=== PATIENT | male | born 1975 | race Caucasian/White ===

== ENCOUNTER 2017-01-26 13:56 | Emergency (ER) | payer OTHER ==
--- NOTE | 2017-01-26 16:20 | ED ---
Laceration/Wound HPI - HPI Summary HPI Summary: Patient presents to ED with left thumb laceration from printing saw. 1cm in length. Deep, most likely involving tendons, bleeding under control. Tetanus unknown. He s unable to extend at the DIP joint. Denies numbness and tingling , but endorses pain at the base of the thumb. He is otherwise healthy and takes no medications. Pulses intact +2. Denies color or temperature changes. Denies other injuries. - History of Current Complaint Stated Complaint: LT HAND / THUMB LAC Time Seen by Provider: 01/26/17 14:34 Hx Obtained From: Patient Mechanism of Injury: Sharp/Blunt Trauma Onset/Duration: Sudden Onset Aggravating: Movement Alleviating: Nothing Timing: Constant Onset Severity: Mild Current Severity: Mild Pain Intensity: 6 Pain Scale Used: 0-10 Numeric Associated Signs & Symptoms: Pain Related Hx: Dominant Hand (Right) - Allergy/Home Medications Allergies/Adverse Reactions: Allergies Allergy/AdvReac Type Severity Reaction Status Date / Time Amoxicillin Allergy Unknown Verified 01/26/17 14:01 Reaction Details Penicillins Allergy Unknown Verified 01/26/17 14:01 Reaction Details PMH/Surg Hx/FS Hx/Imm Hx Previously Healthy: Yes - Immunization History Hx Pertussis Vaccination: No Immunizations Up to Date: Unable to Obtain/Confirm Infectious Disease History: No Infectious Disease History: Denies: Traveled Outside the [place] in Last 30 Days - Social History Occupation: Employed Full-time Lives: With Family Alcohol Use: None Hx Substance Use: No Substance Use Type: Reports: None Hx Tobacco Use: No Smoking Status (MU): Never Smoked Tobacco Review of Systems Constitutional: Negative Eyes: Negative Cardiovascular: Negative Respiratory: Negative Positive: Arthralgia - left thumb laceration to tendon, Myalgia Skin: Negative Neurological: Negative Psychological: Normal All Other Systems Reviewed And Are Negative: Yes Physical Exam Triage Information Reviewed: Yes Vital Signs On Initial Exam: Initial Vitals Temp Pulse Resp BP Pulse Ox 98.8 F 73 16 125/62 99 01/26/17 13:59 01/26/17 13:59 01/26/17 13:59 01/26/17 13:59 01/26/17 13:59 Vital Signs Reviewed: Yes Appearance: Positive: Well-Appearing, No Pain Distress, Well-Nourished Skin: Positive: Warm, Skin Color Reflects Adequate Perfusion, Other - 1cm laceration to the left thumb likely involving tendon Head/Face: Positive: Normal Head/Face Inspection Eyes: Positive: Normal, RALPH Neck: Positive: Supple, No Lymphadenopathy Respiratory/Lung Sounds: Positive: Clear to Auscultation, Breath Sounds Present Cardiovascular: Positive: Normal, RRR, Pulses are Symmetrical in both Upper and Lower Extremities Musculoskeletal: Positive: Pain @ - base of thumb at MCP - DIP unable to fully extend. Neurological: Positive: Normal, Sensory/Motor Intact, Alert, Oriented to Person Place, Time, Speech Normal Psychiatric: Positive: Normal AVPU Assessment: Alert Diagnostics - Vital Signs Vital Signs Temp Pulse Resp BP Pulse Ox 01/26/17 14:34 98.8 F 73 16 125/62 100 01/26/17 13:59 98.8 F 73 16 125/62 99 - Laboratory Lab Statement: Any lab studies that have been ordered have been reviewed, and results considered in the medical decision making process. Laceration Repair Course/Dx - Course Course Of Treatment: xray. tetanus updated. dr. mills called
--- NOTE | 2017-01-26 17:06 | RAD ---
Indication: Left thumb laceration. 3 views of left thumb demonstrates soft tissue defect in the dorsal aspect of the first metacarpal phalangeal joint. No fracture is identified. IMPRESSION: No fracture of left thumb is noted. No radiopaque foreign body is noted.
[2017-01-26 17:47] VITALS: BP 132/87
== END 2017-01-26 17:46 | disposition home or self-care (01) ==
LOC: ED 13:56
DX: S61.012A Laceration without foreign body of left thumb without damage to nail, initial encounter (principal); W29.8XXA Contact with other powered hand tools and household machinery, initial encounter; Y93.9 Activity, unspecified; Y92.9 Unspecified place or not applicable; Y99.9 Unspecified external cause status
CPT/HCPCS: 12001; 99282

== ENCOUNTER 2017-02-01 10:52 | Day surgery (SDC) | payer OTHER ==
[~2017-02-01 10:52] MED LIST: Midazolam* 1 MG/ML 2 ML VIAL (2 MG) ONE; fentaNYL* 50 MCG/ML 2 ML VIAL (100 MCG VIAL) ONE
[2017-02-01] MEDS ORDERED: Bupivacaine 0.25% SDV* 30 ML ONE (11:01)
[2017-02-01] MEDS ORDERED: Clindamycin 900 MG IVPREMIX(* 900 MG/50 ML SDV IV ONE (11:02)
[2017-02-01] MEDS ORDERED: Lidocaine 0.5%* 50 ML SDV ONE (12:24)
[2017-02-01] MEDS ORDERED: DiMENhydriNATE IV* 50 MG/ML VIAL IV PUSH PRN (12:28)
[2017-02-01] MEDS ORDERED: HYDROcodone/ACETAMIN 5-325 MG* 1 TAB PO PRN (12:28)
[2017-02-01] MEDS ORDERED: Ondansetron INJ* 2 MG/ML VIAL IV PRN (12:28)
[2017-02-01] MEDS ORDERED: Acetaminophen TAB* 325 MG PO PRN (12:28)
[2017-02-01 13:55] VITALS: BP 117/84
--- NOTE | 2017-02-02 09:52 | OP ---
DATE OF OPERATION: 02/01/17 - [facility] DATE OF : 75. SURGEON: Nathaniel Medrano MD. [facility] EXPERIENCE COORDINATOR: ELIZABETH Thomson. ANESTHESIOLOGIST: Dr. Escobar. ANESTHESIA: [place] block. PRE-OP DIAGNOSIS: Left thumb laceration with a pruning saw with extensor tendon injury at zone T3. POST-OP DIAGNOSES: 1. Laceration of the left thumb extensor tendon at zone T3. 2. Traumatic arthrotomy left thumb MP joint. 3. Multiple small metallic foreign bodies in the left thumb wound. 4. Left thumb dorsal sensory digital nerve lacerations. PROCEDURE PERFORMED: 1. Debridement of skin and subcutaneous tissue and removal of multiple small metallic foreign bodies, left thumb wound. 2. Extension of traumatic arthrotomy left thumb MP joint with irrigation and debridement of joint and closure of the capsule. 3. Repair of extensor tendon, left thumb, zone T3 laceration. 4. Repair of dorsal sensory digital nerve. INDICATIONS: Gómez lacerated the left thumb over the dorsum of the MP joint with a nonelectric pruning saw. The wound was washed out and closed on 2016. He came to my office just last Wednesday and the thumb was actually looking that there was really no signs of infection, but he definitely had inability to extend the thumb of the finger tip. I talked to him about the need to explore the wound and to clean it up and repair the tendon. We talked about risks and benefits and he would like to proceed. ESTIMATED BLOOD LOSS: 5 mL. COMPLICATIONS: None. FINDINGS: Multiple small metallic shards in the wound. I did not really see any wood or organic material. There was a traumatic arthrotomy. There was a few millimeters of tendon loss due to the saw blade. DESCRIPTION OF PROCEDURE: Gómez was seen in the preoperative holding area and the correct side, site, and procedure were identified. We came back to the operating room where a [place] block was performed. The arm was prepped and draped with Betadine and we had a formal time-out. I began by extending the traumatic oblique laceration proximal on the radial aspect and distal on the ulnar aspect. Full thickness flaps were raised off the tip of the paratenon. In the ulnar aspect of the wound, there was very large dorsal sensory nerve and a dorsal vein that had been lacerated. I made a note of these for repair at the end of the case. Flaps were sewn back. There was extensive scar tissue starting to form. This was debrided. The tendon edges were encountered. There was an ovoid defect present in the extensor apparatus dorsally right over the MP joint. There was a traumatic arthrotomy down into the MP joint. This was extended just a little bit radially and ulnarly so that I could get view of the joint and easily get the irrigation in there. At this point, I went ahead and began to debride out all of the extensive small metallic shards that were present in the wound. There were many of these. These were removed with the combination of sharp excision, the rongeur, and copious irrigation. It took quite some time to get everything debrided and clean until I could, under 3.5 loupe magnification, ensure that there was no retained foreign material and that the wound was completely clean. Once I had all the foreign material removed, I went ahead and cleaned up the traumatic arthrotomy. The joint was cleaned with copious amounts of irrigation. I then took some 4-0 Prolene suture and placed a few figure-of- eight sutures with the knots buried to close the dorsal capsule. Once the capsule was closed, I analyzed the extent of the tendon defect. When I extended the MP joint and the IP joint, there was about 5 to 10 mm gap between the tendon edges. I took my forceps and was able to probe distally on the proximal tendons and within this was able to posed nicely. I therefore went ahead and took a 4-0 Prolene suture and reapproximated the tendon edges loosely with one [id number] stitch. I then placed core sutures by doing a whip stitch up into the EPL proximal tendon stump and then down into the extensor apparatus distally. This was then tightened up and the tendon apposed nicely and the 2-strand core suture was tied up there. I took the 4-0 Prolene suture in similar fashion performed a whip stitch up into the EPB tendon stump and down into the extensor apparatus. This was pulled tight and tied off to repair that EPB tendon with another 2-strand core suture. The laceration was just right where the EPL and EPB were coalescing into the extensor rodriguez. I then augmented my repair with multiple 5-0 Prolene [id number] sutures. This was used to close down the extensor rodriguez radially and ulnarly. There was a little bit of redundancy radially and ulnarly but it all closed down nicely. Everything looked very nicely apposed. There was absolutely no gapping when I was flexing and extending the thumb at the IP and MP joints. There was good passive motion of the thumb. At this point, I irrigated out the wound. I located my dorsal sensory digital nerve that I had set aside for repair. The edges were brought back together. There was a bit of gap where the saw had gone through. I freshened things up with the straight microsutures. I then placed one 9-0 nylon to see how easily the nerve edges were opposed. One 9-0 nylon epitendinous suture held the nerve in apposition. I placed a second 9-0 nylon epitendinous simple suture at 180 degrees in the first suture. This brought the tendon together very nicely and the repair was holding. At this point, I was satisfied with all the repairs. I irrigated out the wound. I released the skin flaps and the skin edges were closed with 4-0 nylon simple interrupted sutures. The operative area was infiltrated with 0.25% Marcaine. The wound was dressed with Xeroform, 4x4's, sterile Webril and a thumb spica splint was placed with the MP joint and IP joint in full extension. Please note that I had ellipsed out the traumatic skin laceration as I made my initial approach and did debride this plus the subcutaneous tissue and all the foreign material inside the wound. Overall, the skin closure was quite nice at the end. Once I had the splint in place, I let down the tourniquet. The thumb pinked up immediately. At this point, he was taken to recovery room in stable condition. [id number]/[facility] #: [id number] JAIME
== END 2017-02-01 14:10 | disposition home or self-care (01) ==
LOC: OREAST 10:52
PROVIDERS: ATTEND Orthopaedic Surgery Hand Surgery
DX: S66.222A Laceration of extensor muscle, fascia and tendon of left thumb at wrist and hand level, initial encounter (principal); S64.32XA Injury of digital nerve of left thumb, initial encounter; W45.8XXA Other foreign body or object entering through skin, initial encounter; W27.1XXA Contact with garden tool, initial encounter; Y92.89 Other specified places as the place of occurrence of the external cause
CPT/HCPCS: 88304; J2250; J3010